=== PATIENT | female | born 2000 | race American Indian/Alaskan Native ===

== ENCOUNTER 2020-09-24 12:53 | Outpatient (CLI) | payer OTHER ==
[2020-09-24 13:16] VITALS: BP 119/59
== END 2020-09-24 14:20 | disposition home or self-care (01) ==
LOC: TRG 12:53 → APU 12:54 → TRG 14:20
PROVIDERS: ATTEND Obstetrics & Gynecology
DX: Z34.93 Encounter for supervision of normal pregnancy, unspecified, third trimester (principal); Z3A.32 32 weeks gestation of pregnancy; M54.9 Dorsalgia, unspecified
CPT/HCPCS: 59025